=== PATIENT | male | born 1945 | race Caucasian/White ===

== ENCOUNTER 2016-02-26 17:14 | Outpatient (CLI) | payer MEDICARE ==
[2016-02-26 20:22] LABS: #Basophils 0.1 thou/uL (0.0-0.2); #Eosinphils 0.2 thou/uL (0.0-0.7); #Lymphocytes 1.6 thou/uL (1.20-3.40); #Monocytes 0.5 thou/uL (0.11-0.59); #Neutrophils 2.1 thou/uL (1.40-6.50); %Basophils 1.7 % (0.0-1.0); %Eosinophils 4.3 % (0.0-10.0); %Monocytes 11.3 % (0.0-10.0); Hematocrit 52.2 % (42.0-52.0); Mean Platelet Volume 8.1 fL (7.4-10.4); Red Blood Cell (RBC) Count 5.43 mill/uL (4.70-6.10); White Blood Cell (WBC) Count 4.5 thou/uL (4.8-10.8)
[2016-02-26 20:30] LABS: ALT (SGPT) 22 U/L (0-55); AST (SGOT) 21 U/L (5-34); Alkaline Phosphatase 62 U/L (40-150); Anion Gap 14 mmol/L (10-20); BUN (Urea Nitrogen) 18 mg/dL (8.4-25.7); Bilirubin, Total 0.9 mg/dL (0.2-1.2); Calc. Creatinine Clearance 0 mL/min (70-130); Calcium 9.7 mg/dL (7.8-10.44); Carbon Dioxide 27 mmol/L (23-31); Chloride 106 mmol/L (98-107); Estimated GFR-MDRD 63; Globulin 3.1 g/dL (2.4-3.5); LDL Cholesterol, Calculated 58 mg/dL; Protein, Total 7.4 g/dL (5.8-8.1)
== END 2016-02-26 17:15 | disposition home or self-care (01) ==
LOC: NAV SJFMSP 17:14
PROVIDERS: ATTEND Family Medicine
DX: Z12.5 Encounter for screening for malignant neoplasm of prostate (principal); F32.89 Other specified depressive episodes; E78.5 Hyperlipidemia, unspecified
CPT/HCPCS: 80053; 80061; 84439; 84443; 85025; G0103

== ENCOUNTER 2017-12-24 18:43 | Emergency (ER) | payer MEDICARE ==
--- NOTE | 2017-12-24 20:50 | RAD ---
ACUTE ABDOMINAL SERIES: Indication: History of small bowel obstruction. Comparison: None. FINDINGS: There is prominent bullous disease involving the upper lobes. There is scattered coarse lung markings throughout both lungs. There is some pleural thickening involving the left lower hemithorax. No defi nite confluent airspace opacity is evident. Bowel gas pattern is nonspecific but without overt eviden ce of obstruction. There are small phleboliths within the lower pelvis. No acute osseous abnormality is evident. IMPRESSION: 1. Severe COPD change. 2. Mild cardiomegaly. 3. Bowel gas pattern is nonspecific but without overt evidence of obstruction. POS: [facility]
== END 2017-12-24 23:00 | disposition home or self-care (01) ==
LOC: NAV ERS 18:43
DX: K59.00 Constipation, unspecified (principal); J44.9 Chronic obstructive pulmonary disease, unspecified; E86.0 Dehydration; E78.5 Hyperlipidemia, unspecified; N40.0 Benign prostatic hyperplasia without lower urinary tract symptoms; F41.9 Anxiety disorder, unspecified; F32.9 Major depressive disorder, single episode, unspecified; Z87.891 Personal history of nicotine dependence; Z79.899 Other long term (current) drug therapy; Z79.82 Long term (current) use of aspirin
CPT/HCPCS: 74022; 94760; 96360